=== PATIENT | male | born 1950 | race Caucasian/White ===

== ENCOUNTER 2020-02-08 06:56 | Outpatient (CLI) | payer MEDICARE, OTHER ==
--- NOTE | 2020-02-08 07:59 | ULT ---
ULTRASOUND ABDOMINAL AORTA: HISTORY: Screening for abdominal aortic aneurysm FINDINGS: The abdominal aortic measurements are as follows: Proximal: 1.9 x 1.8 x 1.8cm Mid: 1.8 x 1.7 x 1.3cm Distal: 1.2 x 1.5 x 1.5cm IMPRESSION: No evidence of abdominal aortic aneurysm.
== END 2020-02-08 06:57 | disposition home or self-care (01) ==
LOC: BICULT 06:56
PROVIDERS: ATTEND Family Medicine Sports Medicine
DX: Z00.00 Encounter for general adult medical examination without abnormal findings (principal); Z13.6 Encounter for screening for cardiovascular disorders
CPT/HCPCS: 76775

== ENCOUNTER 2023-05-13 08:03 | Outpatient (CLI) | payer MEDICARE | END 2023-05-13 08:04 | disposition home or self-care (01) | LOC: BICCT 08:03 | PROVIDERS: ATTEND Family Medicine Sports Medicine | DX: Z12.2 Encounter for screening for malignant neoplasm of respiratory organs (principal); I25.10 Atherosclerotic heart disease of native coronary artery without angina pectoris; Z87.891 Personal history of nicotine dependence | CPT/HCPCS: 71271 ==